=== PATIENT | female | born 1975 | race Caucasian/White ===

== ENCOUNTER 2023-06-26 06:53 | Day surgery (SDC) | payer OTHER ==
[2023-06-26] MEDS: Dextrose 5%-0.45% NaCl 1,000 ML IV SCH (07:18)
[2023-06-26] MEDS ORDERED: fentaNYL 100 MCG/2 ML SDV ONE (07:25)
[2023-06-26] MEDS ORDERED: Midazolam 1 MG/ML 2 ML SDV ONE (07:25)
[2023-06-26] MEDS: fentaNYL 100 MCG/2 ML SDV IV ONE ×2 (08:08)
[2023-06-26] MEDS: Midazolam 1 MG/ML 2 ML SDV IV ONE ×2 (08:09)
== END 2023-06-26 09:45 | disposition home or self-care (01) ==
LOC: DL.ENDO 06:53
PROVIDERS: ATTEND Internal Medicine Gastroenterology
DX: K29.50 Unspecified chronic gastritis without bleeding (principal); K31.7 Polyp of stomach and duodenum; K21.9 Gastro-esophageal reflux disease without esophagitis; Z80.0 Family history of malignant neoplasm of digestive organs; Z88.1 Allergy status to other antibiotic agents; Z79.899 Other long term (current) drug therapy
CPT/HCPCS: 43239; 87077; J2250; J3010; J7042

== ENCOUNTER 2023-06-30 06:56 | Day surgery (SDC) | payer OTHER ==
[~2023-06-30 06:56] MED LIST: Sodium Chloride 0.9% 10 ML Syringe FLUSH PRN; Sodium Chloride 0.9% 10 ML Syringe FLUSH SCH
[2023-06-30] MEDS ORDERED: fentaNYL 100 MCG/2 ML SDV ONE (07:00)
[2023-06-30] MEDS ORDERED: Midazolam 1 MG/ML 2 ML SDV ONE (07:00)
[2023-06-30] MEDS: Dextrose 5%-0.45% NaCl 1,000 ML IV SCH (07:16)
[2023-06-30] MEDS: fentaNYL 100 MCG/2 ML SDV IV ONE ×2 (08:12→08:13)
[2023-06-30] MEDS: Midazolam 1 MG/ML 2 ML SDV IV ONE ×6 (08:13→08:19)
== END 2023-06-30 09:45 | disposition home or self-care (01) ==
LOC: DL.ENDO 06:56
PROVIDERS: ATTEND Internal Medicine Gastroenterology
DX: Z12.11 Encounter for screening for malignant neoplasm of colon (principal); K64.8 Other hemorrhoids; K21.9 Gastro-esophageal reflux disease without esophagitis; E66.9 Obesity, unspecified; Z68.41 Body mass index [BMI] 40.0-44.9, adult; Z80.0 Family history of malignant neoplasm of digestive organs
CPT/HCPCS: 45378; J2250; J3010; J7042